=== PATIENT | male | born 1975 | race Caucasian/White ===

== ENCOUNTER 2020-01-19 09:15 | Outpatient (REF) | payer OTHER, SELFPAY | END 2020-01-19 09:16 | disposition home or self-care (01) | LOC: HO.LAB 09:15 | PROVIDERS: Visit Provider Internal Medicine | DX: Z20.828 Contact with and (suspected) exposure to other viral communicable diseases (principal) | CPT/HCPCS: C9803; U0003 ==

== ENCOUNTER 2023-10-27 17:38 | Emergency (ER) | payer OTHER, SELFPAY ==
--- NOTE | 2023-10-27 17:40 | ED.GENADULT ---
HPI - General Adult General Stated complaint: Nail through middle finger Source: patient Mode of arrival: ambulatory Limitations: no limitations History of Present Illness ED Provider: Gertrudis HPI narrative: 48 year old male presents w/ nail to left middle finger happened [employer]. No a/c numbness, tingling, fevers, chills. Not on thinners. Unclear if tetanus is UTD Related Data Previous Rx's ?Medication ?Instructions ?Recorded amoxicillin 875 mg-potassium 1 tab PO BID 7 days #14 tabs 10/27/23 clavulanate 125 mg tablet Allergies Allergy/AdvReac Type Severity Reaction Status Date / Time No Known Allergies Allergy Verified 10/27/23 17:42 Review of Systems Review of Systems: Yes all other systems are reviewed and are negative PMFSH Past Medical History Attestation statement: The following information was validated with the patient. Source: old records reviewed and nursing notes reviewed Physical Exam ED Vital Signs: vss Appearance: Alert.? Oriented X3.? No acute distress.? Head: Normocephalic, atraumatic, no step-offs or deformities Eyes: Pupils equal, round and reactive to light.? CVS: Normal heart rate and rhythm Respiratory: No respiratory distress.? Skin: Skin warm and dry.? Normal skin color.? Normal skin turgor.? Extremities: No lower extremity edema.? No calf ttp. 5/5 strength to bilateral upper and lower extremities 2+ radial pulses. Distal sensation intact b/l nail protruding through distal aspect of left middle finger Back: No midline tenderness, no C-spine tenderness, full range of motion, no CVA tenderness bilaterally Neuro: Oriented X 3.? No motor deficit.? No sensory deficit. CN 2-12 intact Course Course Course Narrative: This is an RME done by SUSNANAH Caba: Additional HPI, ROS, PE not included below will be deferred to primary provider. 48 year old male presenting with nail through L middle finger, pain severity 3/10. Appearance: Alert.? Oriented X3.? No acute cardiopulmonary distress distress.? Head: Normocephalic, atraumatic, no step-offs or deformities Neck: Normal inspection.? Neck supple.? CVS: Pulses normal.? Respiratory: No respiratory distress.? Abdomen: Soft and nontender.? Skin: ? Normal skin color. Extremities: 5/5 strength to bilateral upper and lower extremities Neuro: Oriented X 3.? No motor deficit.? No sensory deficit. Medical Decision Making Medical Decision Making MDM Narrative: 48 year old male presents w/ nail to left middle finger PE nail protruding through distal aspect of left middle finger Hx and pe concerning for FB in finger no sings of NV compromise or acute threat to limb. possible fx. No signs of dislocation patient doesnt want xray feels no need Plan- boostrix and removal in triage Differential Diagnosis Differential Diagnoses: The differential diagnosis associated with the presentation includes Hx and pe concerning for FB in finger no sings of NV compromise or acute threat to limb. possible fx. No signs of dislocation Admission/Observation Consideration of admission/observation: Escalation of care including admission/observation considered unlikely Independent Interpretation I performed an independent interpretation of an: Plain X-Ray Radiology Impression Discussion of test interpretation with radiology: I have reviewed the radiologist's reading. Prescription Management I considered prescription management with: Antibiotic Discharge Plan Discharge Clinical Impression: Foreign body finger Patient Disposition: Home, Self-Care Additional Instructions: Take your medications as prescribed. If you were prescribed antibiotics today, it is important that you take your medication to their entirety, do not skip any doses, do not finish them early. Follow-up with your primary care provider this week. Return to the emergency department with new or worsening symptoms. In case of emergency call 911 Prescriptions: New amoxicillin-pot clavulanate 875-125 mg tablet 1 tab PO BID 7 Days Qty: 14 0RF Referrals: Physician,Unknown J [Primary Care Provider] - 2 days Print Language: St Helen[place]
[2023-10-27 17:41] VITALS: BP 138/93; PULSE 92; RESP 18; TEMP 36.9; O2SAT 96; BMI 32.3
[2023-10-27] MEDS: Diphth,Pertus(ACell),Tet Adult 0.5 ML SYRINGE IM (17:48)
[2023-10-27 17:50] VITALS: BP 138/93; PULSE 92; RESP 18; TEMP 36.9; O2SAT 96
== END 2023-10-27 18:01 | disposition home or self-care (01) ==
PROVIDERS: Emergency Provider Emergency Medicine
DX: S61.223A Laceration with foreign body of left middle finger without damage to nail, initial encounter (principal); M60.242 Foreign body granuloma of soft tissue, not elsewhere classified, left hand; W45.0XXA Nail entering through skin, initial encounter; Y93.89 Activity, other specified; Y92.89 Other specified places as the place of occurrence of the external cause; Y99.8 Other external cause status; Z23 Encounter for immunization
CPT/HCPCS: 20520; 90471; 90715; 99282; 99284

== ENCOUNTER → 2024-06-29 13:38 | Outpatient (BNVA) | payer OTHER, SELFPAY | PROVIDERS: Visit Provider Physician Assistant | DX: S53.402D Unspecified sprain of left elbow, subsequent encounter (principal); X50.0XXD Overexertion from strenuous movement or load, subsequent encounter | CPT/HCPCS: 73080; 99204 ==

== ENCOUNTER → 2024-07-13 13:57 | Outpatient (BNVA) | payer OTHER, SELFPAY | PROVIDERS: PCP Physician Assistant; Visit Provider Physician Assistant | DX: S53.402D Unspecified sprain of left elbow, subsequent encounter (principal); X50.0XXD Overexertion from strenuous movement or load, subsequent encounter; Z02.79 Encounter for issue of other medical certificate | CPT/HCPCS: 99213 ==

== ENCOUNTER 2024-07-29 14:30 | Outpatient (RCR) | payer OTHER, SELFPAY ==
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
--- NOTE | 2024-08-02 11:18 | MHC.OT.DC ---
[address] [phone] F: [phone] Occupational Therapy Discharge Note Patient Name: Jayson Rubio Provider: Evelyn Oconnell Diagnosis: L elbow pain due to work injury Date of Surgery: Date of Evaluation: 07/05/24 Date of Discharge: Treatments to Date: 7 Cancellations to Date: No Shows to Date: Discharge Status: Achieved Goals Improved Function Independent with HEP Discharge Summary: Pt tolerated therapy well today ; ok to d/charge pt has met his goals for therapy will address elbow pain w/ ortho follow up in a few weeks Electronically Signed By: Abimbola Ruggiero OTR/L Reviewed/agree with student documentation: N/A Therapist: Please Sign and return to therapist, thank you for your referral.
== END 2024-08-02 11:18 | disposition home or self-care (01) ==
LOC: HO.OT 14:30
PROVIDERS: PCP Physician Assistant; Visit Provider Physician Assistant
DX: S46.812D Strain of other muscles, fascia and tendons at shoulder and upper arm level, left arm, subsequent encounter (principal)
CPT/HCPCS: 97035; 97110; 97140; 97166; 97535

== ENCOUNTER → 2024-07-29 15:09 | Outpatient (BNVA) | payer OTHER, SELFPAY | PROVIDERS: PCP Physician Assistant; Visit Provider Physician Assistant | DX: S53.402D Unspecified sprain of left elbow, subsequent encounter (principal); X50.0XXD Overexertion from strenuous movement or load, subsequent encounter; Z02.79 Encounter for issue of other medical certificate | CPT/HCPCS: 99213 ==

== ENCOUNTER 2024-08-22 10:40 | Outpatient (AMB) | payer OTHER, SELFPAY ==
[2024-08-22 10:44] VITALS: BMI 32.3
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
== END 2024-08-22 11:17 | disposition home or self-care (01) ==
LOC: HO.HOS 10:41
PROVIDERS: PCP Physician Assistant
DX: M77.12 Lateral epicondylitis, left elbow (principal)
CPT/HCPCS: 20550; 99203

== ENCOUNTER → 2024-08-22 10:40 | Outpatient (BNVA) | payer OTHER, SELFPAY | PROVIDERS: PCP Physician Assistant | DX: M77.12 Lateral epicondylitis, left elbow (principal); Z04.2 Encounter for examination and observation following work accident | CPT/HCPCS: 20550; 99202; J1100; J2003 ==